=== PATIENT | male | born 1980 | race Native Hawaiian/Other Pacific Islander ===

== ENCOUNTER → 2018-11-24 07:57 | Outpatient (CLI) | payer OTHER ==
[~2018-11-24 07:57] MED LIST: CHANTIX STARTIN0.5 & PO; CRESTOR5 MG PO; LEVO0.0218 PO; LIPITOR10 MG PO; PROM25TA52 PO; RANI150T78 PO
== END | disposition home or self-care (01) ==
LOC: AMB 07:57
DX: Z04.3 Encounter for examination and observation following other accident (principal)

== ENCOUNTER → 2022-07-08 | Outpatient (CLI) | payer OTHER ==
[2022-07-08 10:48] LABS: PLATELET COUNT 201 K/uL (142-355)
[2022-07-08 11:31] LABS: POTASSIUM 3.8 mmol/L (3.6-5.2)
== END ==
LOC: LABW 10:33
PROVIDERS: ATTEND Specialist
DX: Z51.11 Encounter for antineoplastic chemotherapy (principal); C71.1 Malignant neoplasm of frontal lobe; R51.9 Headache, unspecified
CPT/HCPCS: 36415; 80053; 81002; 85027

== ENCOUNTER 2022-07-21 09:46 | Emergency (ER) | payer OTHER ==
[~2022-07-21] VITALS: Ht 180.3 cm; Wt 113.4 kg
[2022-07-21 09:49] VITALS: TEMP 98.2
[2022-07-21 10:32] LABS: PLATELET COUNT 250 K/uL (142-355)
[2022-07-21 10:42] LABS: POTASSIUM 3.7 mmol/L (3.6-5.2)
[2022-07-21 14:15] VITALS: BP 129/79
== END 2022-07-21 14:18 | disposition short-term general hospital (02) ==
LOC: ED 09:46
PROVIDERS: Emergency Medicine Emergency Medical Services
DX: K81.0 Acute cholecystitis (principal); G93.6 Cerebral edema; Z11.52 Encounter for screening for COVID-19
CPT/HCPCS: 80053; 82150; 83605; 83690; 83735; 85027; 87040; 87635; 96365; 96374; 96375; 96376; 99284; J1100; J1170; J2270; J2405; J2543; J3490; Q9963; U0003